=== PATIENT | female | born 1965 | race Caucasian/White ===

== ENCOUNTER 2016-10-09 11:27 | Outpatient (CLI) ==
[2016-10-09 13:33] LABS: BASOPHILS # (AUTO) 0.1 K/uL (0-0.2); BASOPHILS % (AUTO) 1.3 % (0.0-3.0); EOSINOPHILS # (AUTO) 0.1 K/ul (0.0-0.7); EOSINOPHILS % (AUTO) 2.7 % (0.0-7.0); HEMATOCRIT 39.8 % (37.0-47.0); IMMATURE GRANULOCYTE % (AUTO) 0.2 % (0.0-5.0); LYMPHOCYTES # (AUTO) 1.6 K/uL (0.60-3.4); LYMPHOCYTES % (AUTO) 31.5 (10.0-50.0); MEAN CORPUSCULAR HGB CONC 32.7 (31.8-35.4); MEAN CORPUSCULAR VOLUME 88.8 fl (81.0-99.0); MONOCYTES # (AUTO) 0.3 K/uL (0.4-2.0); MONOCYTES % (AUTO) 6.5 (0-10); NEUTROPHILS % (AUTO) 57.8; PLATELET COUNT 181 10^3/uL (140-440); RED BLOOD COUNT 4.48 10^6/ul (4.20-5.40)
[2016-10-09 14:11] LABS: ALBUMIN/GLOBULIN RATIO 0.93; ANION GAP 10.5; BILIRUBIN,TOTAL 0.55 mg/dL (0.00-1.20); BUN/CREATININE RATIO 23.59; CALCIUM 9.3 mg/dL (8.2-10.2); CREATININE 0.89 mg/dL (0.60-1.30); POTASSIUM 3.5 mmol/L (3.5-5.10); TOTAL PROTEIN 8.3 g/dL (6.4-8.2)
== END 2016-10-09 11:28 | disposition home or self-care (01) ==
LOC: LAB 11:27
PROVIDERS: ATTEND Nurse Practitioner Family
DX: Z00.00 Encounter for general adult medical examination without abnormal findings (principal)
CPT/HCPCS: 36415; 80053; 80061; 84443; 85025

== ENCOUNTER 2016-10-31 08:02 | Outpatient (CLI) ==
--- NOTE | 2016-11-08 08:13 | MAMMO ---
EXAM: Digital screening mammogram HISTORY: Screening mammogram COMPARISON: Outside study 10/26/2015 and 08/19/2010 FINDINGS: Bilateral CC and MLO views of the breasts were performed digitally and demonstrate scatte red fibroglandular breast density (25 - 50%). There is no abnormal nodule or calcification. The lobu lar nodule in the upper lateral right breast noted on prior exam is not identified on today's examin ation. IMPRESSION: No suspicious nodule or calcification identified. Lobular nodule on prior exam is not identified on today's study. RECOMMENDATION: Annual screening mammogram BIRADS category 1: Negative
== END 2016-10-31 08:03 | disposition home or self-care (01) ==
LOC: RAD 08:02
PROVIDERS: ATTEND Nurse Practitioner Family
DX: Z12.31 Encounter for screening mammogram for malignant neoplasm of breast (principal)

== ENCOUNTER 2017-10-31 11:27 | Outpatient (CLI) | END 2017-10-31 11:28 | disposition home or self-care (01) | LOC: LAB 11:27 | PROVIDERS: ATTEND Emergency Medicine | DX: Z83.3 Family history of diabetes mellitus (principal); E78.5 Hyperlipidemia, unspecified; Z00.00 Encounter for general adult medical examination without abnormal findings | CPT/HCPCS: 36415; 80053; 80061; 83036; 84443; 85025 ==

== ENCOUNTER 2017-11-06 07:47 | Outpatient (CLI) ==
--- NOTE | 2017-11-07 11:33 | MAMMO ---
EXAM: Bilateral digital screening mammogram (2-D and 3-D) History: Screening Comparison: Bilateral mammogram 10/31/2016 Findings: MLO and CC views of bilateral breasts demonstrate scattered fibroglandular breast parenchy ma. CAD was reviewed by the radiologist. Tomosynthesis was performed. There are no dominant masses , no suspicious microcalcifications and no architectural distortions Impression: Stable negative mammogram. Recommend followup routine screening mammography in 1 year. BIRADS 1
== END 2017-11-06 07:48 | disposition home or self-care (01) ==
LOC: RAD 07:47
PROVIDERS: ATTEND Emergency Medicine
DX: Z12.31 Encounter for screening mammogram for malignant neoplasm of breast (principal)
CPT/HCPCS: 77067

== ENCOUNTER 2018-08-09 08:05 | Outpatient (CLI) | END 2018-08-09 08:06 | disposition home or self-care (01) | LOC: RHC-LAB 08:05 | PROVIDERS: ATTEND Nurse Practitioner Family | DX: E78.5 Hyperlipidemia, unspecified (principal) | CPT/HCPCS: 36415; 80053; 80061 ==

== ENCOUNTER 2018-11-19 07:37 | Outpatient (CLI) ==
--- NOTE | 2018-11-20 09:35 | MAMMO ---
EXAM: Bilateral digital screening mammogram (2-D and 3-D) History: Screening Comparison: Bilateral mammogram 11/06/2017 Findings: MLO and CC views of bilateral breasts demonstrate scattered fibroglandular breast parenchy ma. CAD was reviewed by the radiologist. Tomosynthesis was performed. There is a new nodule within the upper-outer quadrant of the right breast anterior depth. There is a new nodule within the poste rior left breast central to the nipple. No suspicious microcalcifications. Impression: New indeterminate bilateral breast nodules. Recommend further evaluation with spot comp ression views and ultrasound. BI-RADS 0, incomplete. Further evaluation needed.
== END 2018-11-19 07:38 | disposition home or self-care (01) ==
LOC: RAD 07:37
PROVIDERS: ATTEND Nurse Practitioner Family
DX: Z12.31 Encounter for screening mammogram for malignant neoplasm of breast (principal)

== ENCOUNTER 2018-12-20 09:15 | Outpatient (CLI) ==
--- NOTE | 2018-12-20 10:02 | MAMMO ---
EXAM: Bilateral digital diagnostic mammogram (2-D and 3-D) History: Bilateral breast nodules. Comparison: Bilateral mammogram 11/19/2018 Findings: MLO and CC views of bilateral breasts demonstrate scattered fibroglandular breast parenchy ma. CAD was reviewed by the radiologist. Tomosynthesis was performed. Additional spot compression views of bilateral breasts confirm the presence of the bilateral breast nodules as previously describ ed. No suspicious microcalcifications. Impression: Indeterminate bilateral breast nodules. Recommend further evaluation with bilateral pam ast ultrasound. BI-RADS 0, incomplete further evaluation is needed
--- NOTE | 2018-12-20 10:29 | US ---
EXAM: Bilateral breast ultrasound. History: Bilateral breast masses. Comparison: Bilateral mammogram 12/20/2018 Technique: Multiple sonographic images through the bilateral breasts were obtained. Color duplex Do ppler was used to interrogate vascular flow. Findings: 0.4 cm anechoic simple cyst within the right breast at 10 o'clock 5 cm from nipple. This correlates with mammography. 0.5 cm anechoic cyst within the left breast at 6 o'clock 10 cm from the nipple. T his correlates with mammography. There are no suspicious masses. Impression: Benign bilateral breast cysts. Recommend return to routine screening mammography schedu le. BI-RADS 2, benign
== END 2018-12-20 09:16 | disposition home or self-care (01) ==
LOC: RAD 09:15
PROVIDERS: ATTEND Nurse Practitioner Family
DX: N63.0 Unspecified lump in unspecified breast (principal)